=== PATIENT | male | born 1980 | race Caucasian/White ===

== ENCOUNTER 2021-06-11 07:28 | Outpatient (CLI) | payer BC | END 2021-06-11 07:29 | disposition home or self-care (01) | LOC: CSHCT 07:28 | PROVIDERS: ATTEND Internal Medicine Infectious Disease | DX: R91.1 Solitary pulmonary nodule (principal); N30.80 Other cystitis without hematuria; R91.8 Other nonspecific abnormal finding of lung field; N32.89 Other specified disorders of bladder; N28.82 Megaloureter; N50.89 Other specified disorders of the male genital organs; N40.0 Benign prostatic hyperplasia without lower urinary tract symptoms | CPT/HCPCS: 71260; 74178 ==

== ENCOUNTER 2025-03-12 08:50 | Outpatient (CLI) | payer BC | END 2025-03-12 08:51 | disposition home or self-care (01) | LOC: CSHSLEEP 08:50 | PROVIDERS: ATTEND Family Medicine | DX: G47.33 Obstructive sleep apnea (adult) (pediatric) (principal); R53.83 Other fatigue; R06.83 Snoring | CPT/HCPCS: 95810 ==